=== PATIENT | female | born 1960 | race Caucasian/White ===

== ENCOUNTER → 2016-05-26 | Outpatient (CLI) | payer BC | END | disposition home or self-care (01) | LOC: GMAJ 10:12 | PROVIDERS: ATTEND Family Medicine | DX: M15.0 Primary generalized (osteo)arthritis (principal) ==

== ENCOUNTER → 2016-05-31 | Outpatient (CLI) | payer BC ==
--- NOTE | 2016-05-31 10:33 | CT ---
EXAM DESCRIPTION: Chest w/Contrast CLINICAL HISTORY: 55 years Female, CHRONIC COUGH COMPARISON: None. TECHNIQUE: CT of the chest with contrast was performed. Data was reformatted for interpretation. FINDINGS: Bilateral lungs are clear. No pleural disease. Heart size is normal. No pericardial disease. No lymphadenopathy noted. The pulmonary artery is not enlarged. The aorta is unremarkable. The trachea and major main stem bronchi are widely patent. The remarkable. Upper abdomen demonstrates no acute findings on today's study. Prior cholecystectomy. Axial and bilateral supraclavicular regions are unremarkable. The osseous structures on today's exam are unremarkable. IMPRESSION: No findings to account for patient's cough. Today's exam is essentially unremarkable. Patient is status post cholecystectomy. Electronically signed by: Rakesh Mcfarlane MD 05/31/2016 10:33 AM DIRECTOR FURNITURE
== END | disposition home or self-care (01) ==
LOC: CT 09:09
PROVIDERS: ATTEND Family Medicine
DX: R05 Cough (principal)

== ENCOUNTER → 2016-06-01 | Outpatient (CLI) | payer BC | END | disposition home or self-care (01) | LOC: GMAJ 15:09 | PROVIDERS: ATTEND Family Medicine | DX: R10.13 Epigastric pain (principal) ==

== ENCOUNTER 2017-01-13 10:05 | Emergency (ER) | payer BC ==
[2017-01-13] MEDS ORDERED: SODIUM CHLORIDE 0.9% 1000ML 1,000 ML IVS ONE (10:14)
--- NOTE | 2017-01-13 10:14 | ED.PDOC ---
History of Present Illness - General Chief Complaint: Headache Stated Complaint: headache Time Seen by Provider: 01/13/17 10:06 Source: patient, RN notes reviewed, Vital Signs reviewed, family Exam Limitations: no limitations - History of Present Illness Initial Comments: 3rd Headache in the past month. Pt has had 2 rounds of antibiotics thinking it may be due to sinusitis. GORDON located in occipital region with migration anteriorly and predominantly on right side of head. No focal neuro deficits. Ambulating without difficulty. Denies feeling fevers and denies rashes. Timing/Duration: constant - over the past few days Severity: moderate - 6 to 7 out of 10 Improving Factors: nothing Worsening Factors: nothing Associated Symptoms: headaches Allergies/Adverse Reactions: Allergies Sulfa Drugs Allergy (Unknown, Unverified 03/05/13 10:35) Promethazine [From Phenergan] Adverse Reaction (Unknown, Unverified 03/05/13 10: 35) Other Makes patient extremely irritable Home Medications: Ambulatory Orders Estradiol 0.5 mg PO DAILY 01/13/17 Review of Systems - Review of Systems Constitutional: States: no symptoms reported EENTM: States: no symptoms reported Respiratory: States: no symptoms reported Cardiology: States: no symptoms reported Gastrointestinal/Abdominal: States: no symptoms reported Genitourinary: States: no symptoms reported Musculoskeletal: States: no symptoms reported Skin: States: no symptoms reported Neurological: States: see HPI, headache Endocrine: States: no symptoms reported Hematologic/Lymphatic: States: no symptoms reported Family Medical History - Family History Grandparents Family History: Unknown Physical Exam - Physical Exam General Appearance: Alert, Comfortable - at rest with lights off in exam room. ambulates without difficulty. 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 Pt nontoxic. No acute, sudden onset, thunderclap. Doubt Infectious etiology ( Meningitis/Encephalitis) and doubt SAH at this time. 01/13/17 10:59 Reglan administered, Toradol nearly completely administered, 200 ml of 1 L NS ( mixed with 25 mg Benadryl) infused at this time. Pt states she is feeling a little better. Will reassess in about 30 minutes when IV fluids nearly complete to see if patient has improved enough to feel ready for discharge. 01/13/17 11:54 Headache is relieved. Pt stable for discharge home. Departure - Departure Clinical Impression: Headache Qualifiers: Headache type: unspecified Headache chronicity pattern: unspecified pattern Intractability: intractable Qualified Code(s): R51 - Headache Time of Disposition: 11:10 Disposition: Discharge to Home or Self Care Condition: Good Departure Forms: ED Discharge - Pt. Copy, Patient Portal Self Enrollment Instructions: DI for Headache Referrals: Ponce Boyd MD [Primary Care Provider] - 1-5 Days Home Medications: Ambulatory Orders Estradiol 0.5 mg PO DAILY 01/13/17 Additional Instructions: I recommend over the counter Excedrin - take as directed. Stay well hydrated with at least 1.5 liters of water daily. Follow-up with Dr. Boyd for reassessment and consideration of referral to Neurology given history of Chiari as well as the potential for Botox injection therapy. Return to ER if condition worsens/unable to function.
[2017-01-13] MEDS ORDERED: METOCLOPRAMIDE HCL INJ 10 MG/2 ML VIAL IV ONE (10:15)
[2017-01-13] MEDS ORDERED: diphenhydrAMINE HCL 50 MG/ML VIAL IV ONE (10:15)
[2017-01-13] MEDS ORDERED: KETOROLAC TROMETHAMINE INJ 30 MG/ML VIAL IV ONE (10:15)
[2017-01-13 12:30] VITALS: BP 135/83; TEMP 97.8; O2SAT 96
== END 2017-01-13 12:20 | disposition home or self-care (01) ==
LOC: ER 10:05
DX: R51 Headache (principal); Z88.2 Allergy status to sulfonamides; Z88.8 Allergy status to other drugs, medicaments and biological substances
CPT/HCPCS: J1200; J1885; J2765; J7030

== ENCOUNTER → 2017-06-12 | Outpatient (CLI) | payer BC | LOC: GMAJ 12:47 | PROVIDERS: ATTEND Family Medicine | DX: Z00.00 Encounter for general adult medical examination without abnormal findings (principal) ==

== ENCOUNTER → 2019-12-03 | Outpatient (CLI) | payer OTHER | LOC: GMAJ 16:46 | PROVIDERS: ATTEND Family Medicine | DX: Z79.899 Other long term (current) drug therapy (principal); D51.9 Vitamin B12 deficiency anemia, unspecified; E78.00 Pure hypercholesterolemia, unspecified ==